=== PATIENT | male | born 1965 | race Caucasian/White ===

== ENCOUNTER 2019-07-03 18:31 | Emergency (ER) | payer OTHER ==
[~2019-07-03] VITALS: Ht 190.5 cm; Wt 101.6 kg
[2019-07-03 18:37] VITALS: BP 138/111; Ht 190.5 cm; Wt 101.6 kg
== END 2019-07-03 19:16 | disposition home or self-care (01) ==
LOC: ED 18:31
DX: K59.00 Constipation, unspecified (principal)